=== PATIENT | male | born 1965 | race African-American/Black ===

== ENCOUNTER 2017-05-20 16:05 | Outpatient (CLI) | payer OTHER ==
[~2017-05-20 16:05] MED LIST: CLONAZEPAM1 M2 ORAL; COLACE100 MG ORAL; DILANTIN100 MG ORAL; FLEET ENEMA133 ML RECTAL; GEODON20 MG ORAL; MIRALAX17 G2 ORAL; NORCO 10/3251 EA ORAL; OXYCODONE HCL E20 MG PO; PROTONIX40 MG ORAL; THIAMINE HCL100 MG ORAL; WELLBUTRIN XL150 M3 ORAL
--- NOTE | 2017-05-20 17:48 | Diagnostic Imaging Report ---
Indication: Altered mental status Technique: sagittal T1 fast spin echo, axial T1 FLAIR, axial T2 FLAIR, axial T2 FS PROPELLER, axial T2* GRE, axial diffusion weighted images. ADC and exponential ADC maps generated Comparison: Reference made to brain CT 06/02/2016 Findings: No abnormal areas of restricted diffusion to suggest acute infarction. No acute hemorrhage or edema. No mass effect nor midline shift. There is age-related enlargement of ventricles and extra axial CSF spaces. There are bilateral focal deep white matter T2 hyperintensities. There is minimal ethmoid sinus disease bilaterally. Vascular flow voids are preserved.. Visualized orbits are unremarkable. Impression: Chronic and age-related changes. Bilateral deep white matter T2 hyperintensities, probably on the basis of chronic deep white matter ischemic changes Negative for acute intracranial bleed or mass effect.
== END 2017-05-20 18:05 | disposition home or self-care (01) ==
LOC: MRI 16:05
DX: R41.82 Altered mental status, unspecified (principal); R53.1 Weakness
CPT/HCPCS: 70551

== ENCOUNTER 2017-08-11 06:38 | Inpatient (IN) | payer OTHER ==
[~2017-08-11] VITALS: Ht 172.7 cm; Wt 72.6 kg
[2017-08-11] VITALS (10 sets, daily range): BP systolic 130–173; BP diastolic 75–106
--- NOTE | 2017-08-11 07:31 | Emergency Room Report ---
History of Present Illness General Chief Complaint: General Complaint Source: Patient, EMS Present Illness HPI 52-year-old male presents ED for evaluation. Per EMS patient was found on sidewalk sitting. Bystander called 911. Patient told EMS that he used sublingual marijuana and drink alcohol. Patient states he feels too weak to walk. Needs a place to sleep. Denies any head injury. Denies chest pain or shortness of breath. Denies nausea or vomiting. Denies any other drug use. No other relieving factors. Denies any other associated symptoms Allergies: Coded Allergies: HALOPERIDOL (Verified Allergy, Unknown, 04/05/14) COPIED FROM UNCODED SECTION HYDROXYZINE (Verified Allergy, Unknown, 04/05/14) COPIED FROM UNCODED SECTION Patient History Past Medical History: HTN, asthma, COPD, other - cirrhosis Past Surgical History: none Pertinent Family History: none Social History: Reports: alcohol use, drug use, Denies: smoking Immunizations: UTD Reviewed Nursing Documentation: PMH: Agreed, PSxH: Agreed Nursing Documentation-PMH Hx Cardiac Problems: Yes - CHF,ANGINA Hx Hypertension: Yes Hx Asthma: Yes Hx COPD: Yes Hx Cancer: No Hx Gastrointestinal Problems: Yes - CIRRHOSIS OF LIVER Hx Neurological Problems: No Review of Systems All Other Systems: negative except mentioned in HPI Physical Exam Vital Signs Date Time Temp Pulse Resp B/P (MAP) Pulse Ox O2 Delivery O2 Flow Rate FiO2 08/11/17 06:33 98.1 115 18 160/84 97 Room Air Sp02 EP Interpretation: reviewed, normal General Appearance: GCS 15, non-toxic, lethargic Head: normocephalic, atraumatic ENT: normal ENT inspection Neck: normal inspection Respiratory: chest non-tender, lungs clear, normal breath sounds, speaking full sentences Cardiovascular #1: regular rate, rhythm, no edema Gastrointestinal: normal inspection Rectal: deferred Genitourinary: no CVA tenderness Musculoskeletal: normal inspection Neurologic: other - lethargic Psychiatric: other - lethargic Skin: normal inspection Lymphatic: normal inspection Medical Decision Making Diagnostic Impression: Primary Impression: Self-inflicted injury Additional Impressions: Renal insufficiency Acute schizophrenia episode ETOH abuse ER Course 52-year-old male presents to ED for evaluation of weakness. Use marijuana and drank alcohol today Differential-psychosis, EtOH, substance abuse Patient initially just allowed to sleep. with stable vitals. Patient observed in ED Patient woke up stating that he may have hit his head earlier. CT head ordered CT head unremarkable She was brought back to his room. Shortly after patient was found on the floor. Large laceration to his left forearm. Patient would not specify what happened Patient was brought to monitored bed. IV access place. Blood drawn. CT head repeated Repeat CT head negative Labs show increased BUN/creatinine, alcoholic is negative, urine tox pending Patient then revealed that he had a recent bleed in his pocket and cut himself with a razor blade. Denies try to hurt himself Laceration to forearm was significant with multiple arterial bleeds. I ligated vessels and use cautery device to control the bleeding Laceration repaired. Pressure dressing applied. Ancef given I do not believe patient is safe to be discharged. Requires admission and possible psychiatric evaluation Labs Test 08/11/17 13:00 White Blood Count 11.9 K/UL (4.8-10.8) Red Blood Count 4.05 M/UL (4.70-6.10) Hemoglobin 13.0 G/DL (14.2-18.0) Hematocrit 42.5 % (42.0-52.0) Mean Corpuscular Volume 105 FL (80-99) Mean Corpuscular Hemoglobin 32.0 PG (27.0-31.0) Mean Corpuscular Hemoglobin Concent 30.5 G/DL (32.0-36.0) Red Cell Distribution Width 12.3 % (11.6-14.8) Platelet Count 207 K/UL (150-450) Mean Platelet Volume 7.9 FL (6.5-10.1) Neutrophils (%) (Auto) 73.1 % (45.0-75.0) Lymphocytes (%) (Auto) 16.0 % (20.0-45.0) Monocytes (%) (Auto) 7.7 % (1.0-10.0) Eosinophils (%) (Auto) 0.7 % (0.0-3.0) Basophils (%) (Auto) 2.6 % (0.0-2.0) Sodium Level 141 mEQ/L (135-145) Potassium Level 4.1 mEQ/L (3.4-4.9) Chloride Level 99 mEQ/L (98-107) Carbon Dioxide Level 24 mEQ/L (20-30) Anion Gap 18 (5-15) Blood Urea Nitrogen 25 mg/dL (7-23) Creatinine 1.5 mg/dL (0.7-1.2) Estimat Glomerular Filtration Rate 59.5 mL/min (>60) Glucose Level 80 mg/dL (74-106) Calcium Level 9.6 mg/dL (8.6-10.2) Total Bilirubin 0.6 mg/dL (0.0-1.2) Aspartate Amino Transf (AST/SGOT) 52 U/L (5-40) Alanine Aminotransferase (ALT/SGPT) 28 U/L (3-41) Alkaline Phosphatase 71 U/L (40-129) Total Protein 8.3 g/dL (6.6-8.7) Albumin 4.8 g/dL (3.5-5.2) Globulin 3.5 g/dL Albumin/Globulin Ratio 1.3 (1.0-2.7) Salicylates Level < 1 mg/dL (10-30) Acetaminophen Level < 10 ug/mL (10-30) Serum Alcohol < 10 mg/dL CT/MRI/US Diagnostic Results CT/MRI/US Diagnostic Results : Imaging Test Ordered: CT head Impression no acute process Last Vital Signs Date Time Temp Pulse Resp B/P (MAP) Pulse Ox O2 Delivery O2 Flow Rate FiO2 08/11/17 07:15 97.9 84 17 143/98 96 Room Air Status: improved Disposition: ADMITTED INPATIENT Condition: Serious Referrals: [facility],REFERRING (PCP) NATANAEL CHRISTIAN M.D. Aug 11, 2017 07:31
--- NOTE | 2017-08-11 12:35 | Diagnostic Imaging Report ---
Indication: Headache Technique: Contiguous 5 mm thick transaxial imaging of the head obtained in a Siemens Sensation [address] scanner. Soft tissue and bone windows generated. Total Dose length Product (DLP): [address] Dose Index Volume (CTDIvol): 70.38, 0.15 mGy Comparison: 06/02/16 Findings: There is mild prominence of the ventricles, basal cisterns, and cerebral sulci consistent with atrophy. Mild, nonspecific, white matter hypoattenuation is noted throughout the brain consistent with chronic small vessel disease. There is no midline shift, edema, acute hemorrhage, mass effect, or abnormal extra-axial fluid collections. Bones and extra osseous soft tissues are unremarkable. Mucosal thinning noted within the paranasal sinuses. Impression: No acute intracranial bleed, mass effect or edema. Mild atrophy of the brain. Nonspecific white matter hypoattenuation probably due to chronic small vessel disease. Sinusitis The CT scanner at [facility] is accredited by the [employer] and the scans are performed using dose optimization techniques as appropriate to a performed exam including Automatic Exposure control.
[2017-08-11] MEDS ORDERED: Sodium Chloride 500ML 500 ML IV ONE (12:56)
[2017-08-11] MEDS ORDERED: LORazepam Inj 2mg/ml 1ml IM ONE (13:00)
[2017-08-11] MEDS ORDERED: Tubing IV Cassette IV ONE (13:18)
[2017-08-11] MEDS ORDERED: LORazepam Inj 2mg/ml 1ml IV ONE (13:30)
[2017-08-11 13:44] LABS: BASOPHILS % (AUTO) 2.6 % (0.0-2.0); EOSINOPHILS % (AUTO) 0.7 % (0.0-3.0); MEAN CORPUSCULAR HGB CONC 30.5 G/DL (32.0-36.0); MEAN CORPUSCULAR VOLUME 105 FL (80-99); MEAN PLATELET VOLUME 7.9 FL (6.5-10.1); MONOCYTES % (AUTO) 7.7 % (1.0-10.0); NEUTROPHILS % (AUTO) 73.1 % (45.0-75.0); PLATELET COUNT 207 K/UL (150-450); RED BLOOD COUNT 4.05 M/UL (4.70-6.10); RED CELL DISTRIBUTION WIDTH 12.3 % (11.6-14.8); WHITE BLOOD COUNT 11.9 K/UL (4.8-10.8)
[2017-08-11 14:10] LABS: ACETAMINOPHEN < 10 ug/mL (10-30); ALANINE AMINOTRANSFERASE 28 U/L (3-41); ALBUMIN/GLOBULIN RATIO 1.3 (1.0-2.7); ALCOHOL < 10 mg/dL; ANION GAP 18 (5-15); ASPARTATE AMINO TRANSFERASE 52 U/L (5-40); CALCIUM 9.6 mg/dL (8.6-10.2); CARBON DIOXIDE 24 mEQ/L (20-30); CHLORIDE 99 mEQ/L (98-107); CREATININE 1.5 mg/dL (0.7-1.2); GLOMERULAR FILTRATION RATE 59.5 mL/min (>60); HEMOLYSIS 1; POTASSIUM 4.1 mEQ/L (3.4-4.9); SODIUM 141 mEQ/L (135-145); TOTAL PROTEIN 8.3 g/dL (6.6-8.7)
--- NOTE | 2017-08-11 14:23 | Diagnostic Imaging Report ---
Indication: Altered mental status Technique: Contiguous 5 mm thick transaxial imaging of the head obtained in a Siemens Sensation [address] scanner. Soft tissue and bone windows generated. Total Dose length Product (DLP): [address] Dose Index Volume (CTDIvol): 70.38, 0.15 mGy Comparison: none Findings: The size and configuration of the cortical sulci, basal cisterns, and ventricles are within normal limits for age. There is no mass effect, midline shift, or edema identified. There is no evidence of acute hemorrhage or abnormal intra-axial or extra-axial fluid collections. The bones and soft tissues are unremarkable. There is thecal thickening within the paranasal sinuses other in degree. Impression: No mass effect, edema or acute bleed. Sinusitis The CT scanner at [facility] is accredited by the [employer] and the scans are performed using dose optimization techniques as appropriate to a performed exam including Automatic Exposure control.
[2017-08-11] MEDS ORDERED: UNOBMED (14:51)
[2017-08-11] MEDS ORDERED: Surgicel 4in x 8in TOPIC ONE (15:24)
[2017-08-11] MEDS ORDERED: Bacitracin Oint UD TOPIC ONE ×3 (15:57→16:45)
[2017-08-11] MEDS ORDERED: ceFAZolin 1gm/50ml Premix 50 ML IV ONE (16:00)
[2017-08-11] MEDS ORDERED: ceFAZolin sod 1 GM in D5W 55 ML IVP SCH (16:30)
[2017-08-11] MEDS ORDERED: BUPROPION XL300 MG ORAL (17:10)
[2017-08-11] MEDS ORDERED: SEROQUEL200 MG ORAL (17:10)
[2017-08-11] MEDS ORDERED: KLONOPIN1 MG ORAL (17:10)
[2017-08-11] MEDS ORDERED: GEODON40 MG ORAL (17:10)
[2017-08-11] MEDS ORDERED: GABAPENTIN300 MG ORAL (17:10)
[2017-08-11] MEDS ORDERED: Mylanta II UD 30ml ORAL PRN (19:30)
[2017-08-11] MEDS ORDERED: Miralax 17gm pkt ORAL PRN (19:30)
[2017-08-11] MEDS ORDERED: Zolpidem 5mg tab ORAL PRN (19:30)
[2017-08-11] MEDS ORDERED: Phenytoin 100mg cap ORAL SCH (21:00)
[2017-08-11] MEDS: Morphine Sulfate 2mg/ml Inj IVP PRN (21:37)
[2017-08-12] MEDS: LORazepam Inj 2mg/ml 1ml IV PRN ×2 (00:40→06:18)
[2017-08-12] MEDS ORDERED: TAMSULOSIN HCL0.4 MG ORAL (02:22)
[2017-08-12] MEDS ORDERED: LOSARTAN POTASS50 MG ORAL (02:22)
[2017-08-12] MEDS: Morphine Sulfate 2mg/ml Inj IVP PRN ×3 (02:49→12:53)
[2017-08-12 04:00] VITALS: BP 139/101
[2017-08-12 07:00] LABS: BASOPHILS % (AUTO) 1.8 % (0.0-2.0); EOSINOPHILS % (AUTO) 2.8 % (0.0-3.0); LYMPHOCYTES % (AUTO) 18.6 % (20.0-45.0); MEAN CORPUSCULAR HGB CONC 32.7 G/DL (32.0-36.0); MEAN CORPUSCULAR VOLUME 104 FL (80-99); MEAN PLATELET VOLUME 8.2 FL (6.5-10.1); MONOCYTES % (AUTO) 11.5 % (1.0-10.0); NEUTROPHILS % (AUTO) 65.3 % (45.0-75.0); PLATELET COUNT 174 K/UL (150-450); RED BLOOD COUNT 3.64 M/UL (4.70-6.10); RED CELL DISTRIBUTION WIDTH 11.8 % (11.6-14.8)
[2017-08-12 07:29] LABS: ALANINE AMINOTRANSFERASE 30 U/L (3-41); ALBUMIN/GLOBULIN RATIO 1.3 (1.0-2.7); ANION GAP 13 (5-15); ASPARTATE AMINO TRANSFERASE 60 U/L (5-40); CALCIUM 9.4 mg/dL (8.6-10.2); CARBON DIOXIDE 25 mEQ/L (20-30); CHLORIDE 100 mEQ/L (98-107); CHOLESTEROL 179 mg/dL (< 200); CHOLESTEROL/HDL RATIO 1.7 (3.3-4.4); CREATININE 1.2 mg/dL (0.7-1.2); GLOMERULAR FILTRATION RATE > 60 mL/min (>60); HEMOLYSIS 2; LDL CHOLESTEROL CALC 55 mg/dL (60-99); POTASSIUM 3.6 mEQ/L (3.4-4.9); SODIUM 138 mEQ/L (135-145); TOTAL PROTEIN 7.7 g/dL (6.6-8.7)
[2017-08-12 08:03] VITALS: BP 144/101
[2017-08-12] MEDS: QUEtiapine 200mg tab ORAL SCH ×2 (08:34→09:00)
[2017-08-12] MEDS ORDERED: BuPROPion XL 150mg tab ORAL SCH (09:00)
[2017-08-12 12:00] VITALS: BP 142/85
--- NOTE | 2017-08-12 14:21 | History and Physical ---
History of Present Illness General Date patient seen: Aug 11, 2017 Reason for Hospitalization: General Complaint Present Illness HPI 52-year-old male presents ED for evaluation of acute encephalopathy. Bystander called 911. Patient told EMS that he used sublingual marijuana and drink alcohol. Patient states he feels too weak to walk. Needs a place to sleep. He was found to be in renal failure and dehydrated and admitted for futher work up. Allergies: Coded Allergies: HALOPERIDOL (Verified Allergy, Unknown, 04/05/14) COPIED FROM UNCODED SECTION HYDROXYZINE (Verified Allergy, Unknown, 04/05/14) COPIED FROM UNCODED SECTION Medication History Scheduled Bupropion HCl (Bupropion Xl), 150 MG ORAL DAILY Bupropion Hcl* (Wellbutrin*), 100 MG ORAL TID, (Reported) Clonazepam (Clonazepam), 2 MG ORAL BEDTIME Clonazepam* (Klonopin*), 2 MG ORAL BID, (Reported) Docusate Sodium* (Colace*), 100 MG ORAL BID Gabapentin* (Gabapentin*), 300 MG ORAL THREE TIMES A DAY, (Reported) Losartan Potassium* (Losartan Potassium*), 50 MG ORAL DAILY, (Reported) Pantoprazole* (Protonix*), 40 MG ORAL DAILY Phenytoin Sodium Extended* (Dilantin*), 300 MG ORAL BEDTIME Polyethylene Glycol 3350* (Miralax*), 17 GM ORAL DAILY Quetiapine Fumarate* (Seroquel*), 200 MG ORAL HS, (Reported) Tamsulosin Hcl (Tamsulosin Hcl*), 0.4 MG ORAL BEDTIME, (Reported) Thiamine Hcl (Vitamin B1*), 100 MG ORAL DAILY Ziprasidone Hcl* (Geodon*), 40 MG ORAL TWICE A DAY Ziprasidone Hcl* (Geodon*), 80 MG ORAL TWICE A DAY, (Reported) Scheduled PRN Hydrocodone/Acetaminophen (Hydrocodon-Acetaminophn 10-325), 1 TAB ORAL Q6H PRN for For Pain, (Reported) Miscellaneous Medications Oxycodone HCl (Oxycodone HCl ER), 15 MG PO, (Reported) Unable to Obtain Medications (Unable To Obtain Meds), (Reported) Patient History Healthcare decision maker Resuscitation status Full Code Advanced Directive on File Review of Systems Constitutional: Reports: no symptoms Eye: Reports: no symptoms Physical Exam General Appearance: WD/WN, no apparent distress Lines, tubes and drains: peripheral HEENT: normocephalic, atraumatic Neck: non-tender, normal alignment Respiratory/Chest: chest wall non-tender Breasts: no masses Cardiovascular/Chest: normal peripheral pulses, normal rate, no JVD Abdomen: normal bowel sounds, non tender Genitourinary/Rectal: normal genital exam Last 24 Hour Vital Signs Date Time Temp Pulse Resp B/P (MAP) Pulse Ox O2 Delivery O2 Flow Rate FiO2 08/12/17 12:00 98.2 74 20 142/85 97 Room Air 08/12/17 09:14 97.7 08/12/17 08:03 97.7 115 22 144/101 Room Air 08/12/17 04:00 97.8 114 18 139/101 98 Room Air 08/11/17 23:59 98.5 115 18 146/100 98 Room Air 08/11/17 20:00 98.5 96 18 147/87 98 Room Air 08/11/17 19:49 84 130/75 Room Air 08/11/17 19:47 98.1 84 18 130/75 99 Room Air 08/11/17 18:00 92 18 147/96 99 Room Air 08/11/17 16:00 84 14 150/90 97 Room Air Laboratory Tests Test 08/11/17 17:30 08/12/17 04:35 Urine Opiates Screen Negative (NEGATIVE) Urine Barbiturates Screen Negative (NEGATIVE) Phencyclidine (PCP) Screen Negative (NEGATIVE) Urine Amphetamines Screen Positive (NEGATIVE) H Urine Benzodiazepines Screen Positive (NEGATIVE) H Urine Cocaine Screen Positive (NEGATIVE) H Urine Marijuana (THC) Screen Positive (NEGATIVE) H White Blood Count 8.0 K/UL (4.8-10.8) Red Blood Count 3.64 M/UL (4.70-6.10) L Hemoglobin 12.4 G/DL (14.2-18.0) L Hematocrit 37.8 % (42.0-52.0) L Mean Corpuscular Volume 104 FL (80-99) H Mean Corpuscular Hemoglobin 34.0 PG (27.0-31.0) H Mean Corpuscular Hemoglobin Concent 32.7 G/DL (32.0-36.0) Red Cell Distribution Width 11.8 % (11.6-14.8) Platelet Count 174 K/UL (150-450) Mean Platelet Volume 8.2 FL (6.5-10.1) Neutrophils (%) (Auto) 65.3 % (45.0-75.0) Lymphocytes (%) (Auto) 18.6 % (20.0-45.0) L Monocytes (%) (Auto) 11.5 % (1.0-10.0) H Eosinophils (%) (Auto) 2.8 % (0.0-3.0) Basophils (%) (Auto) 1.8 % (0.0-2.0) Sodium Level 138 mEQ/L (135-145) Potassium Level 3.6 mEQ/L (3.4-4.9) Chloride Level 100 mEQ/L (98-107) Carbon Dioxide Level 25 mEQ/L (20-30) Anion Gap 13 (5-15) Blood Urea Nitrogen 16 mg/dL (7-23) Creatinine 1.2 mg/dL (0.7-1.2) Estimat Glomerular Filtration Rate > 60 mL/min (>60) Glucose Level 139 mg/dL (74-106) H Calcium Level 9.4 mg/dL (8.6-10.2) Total Bilirubin 0.7 mg/dL (0.0-1.2) Aspartate Amino Transf (AST/SGOT) 60 U/L (5-40) H Alanine Aminotransferase (ALT/SGPT) 30 U/L (3-41) Alkaline Phosphatase 71 U/L (40-129) Total Protein 7.7 g/dL (6.6-8.7) Albumin 4.4 g/dL (3.5-5.2) Globulin 3.3 g/dL Albumin/Globulin Ratio 1.3 (1.0-2.7) Triglycerides Level 103 mg/dL (< 150) Cholesterol Level 179 mg/dL (< 200) LDL Cholesterol 55 mg/dL (60-99) L HDL Cholesterol 103 mg/dL (> 60) H Cholesterol/HDL Ratio 1.7 (3.3-4.4) L Thyroid Stimulating Hormone (TSH) 7.240 uIU/mL (0.300-4.500) Height (Feet): 5 Height (Inches): 8.00 Weight (Pounds): 160 Medications Current Medications Medications (Trade) Dose Ordered Sig/Sam Route PRN Reason Start Time Stop Time Status Last Admin Dose Admin Acetaminophen (Tylenol) 650 mg Q4H PRN ORAL fever 08/11/17 19:30 09/10/17 19:29 Al Hydroxide/Mg Hydroxide (Mylanta II) 30 ml Q6H PRN ORAL dyspepsia 08/11/17 19:30 09/10/17 19:29 Bupropion HCl (Wellbutrin XL) 150 mg DAILY ORAL 08/12/17 09:00 09/11/17 08:59 08/12/17 08:34 Clonazepam (KlonoPIN) 2 mg BEDTIME ORAL 08/11/17 21:00 08/18/17 20:59 08/11/17 21:31 Dextrose (Dextrose 50%) STAT PRN IV Hypoglycemia 08/11/17 19:30 09/10/17 19:29 Gabapentin (Neurontin) 300 mg THREE TIMES A DAY ORAL 08/12/17 21:00 09/11/17 20:59 Lorazepam (Ativan 2mg/ml 1ml) 0.5 mg Q4H PRN IV For Anxiety 08/11/17 19:30 08/18/17 19:29 08/12/17 06:18 Morphine Sulfate (Morphine Sulfate) 1 mg Q4H PRN IVP For Pain 4-10 08/11/17 19:30 08/18/17 19:29 08/12/17 12:53 Ondansetron HCl (Zofran) 4 mg Q6H PRN IVP Nausea & Vomiting 08/11/17 19:30 09/10/17 19:29 Oxycodone HCl (OxyCONTIN) 10 mg Q12HR ORAL 08/12/17 14:30 08/19/17 14:29 Phenytoin (Dilantin) 300 mg BEDTIME ORAL 08/11/17 21:00 09/10/17 20:59 08/11/17 21:31 Polyethylene Glycol (Miralax) 17 gm HSPRN PRN ORAL Constipation 08/11/17 19:30 09/10/17 19:29 Quetiapine Fumarate (SEROquel) 200 mg DAILY ORAL 08/12/17 09:00 09/11/17 08:59 Zolpidem Tartrate (Ambien) 5 mg HSPRN PRN ORAL Insomnia 08/11/17 19:30 08/18/17 19:29 Assessment/Plan Problem List: (1) Suicidal ideation (2) Acute schizophrenia episode ICD Codes: F20.9 - Acute schizophrenia episode SNOMED: 603739669 (3) ETOH abuse ICD Codes: F10.10 - Alcohol abuse, uncomplicated SNOMED: 47495558, 47898852 (4) Seizure disorder ICD Codes: G40.909 - Epilepsy, unspecified, not intractable, without status epilepticus SNOMED: 942853834 (5) HTN (hypertension) ICD Codes: I10 - HTN (hypertension) SNOMED: 43923379 (6) Opioid abuse ICD Codes: F11.10 - Opioid abuse, uncomplicated SNOMED: 7253784 Assessment/Plan iv hydration psych evaluation social service evaluation NETO STRICKLAND Aug 12, 2017 14:21
[2017-08-12] MEDS ORDERED: oxyCONTIN 10mg tab ORAL SCH (14:30)
--- NOTE | 2017-08-12 22:44 | Consultation ---
History of Present Illness General Chief Complaint: General Complaint Present Illness HPI 52-year-old male presents ED for evaluation of acute encephalopathy. the pt is manipulative and inconsistent. well familiar with the pt. the pt hopping from one psych hosptial to another. spends money on coke and prostitutes Allergies: Coded Allergies: HALOPERIDOL (Verified Allergy, Unknown, 04/05/14) COPIED FROM UNCODED SECTION HYDROXYZINE (Verified Allergy, Unknown, 04/05/14) COPIED FROM UNCODED SECTION Medication History Scheduled Bupropion HCl (Bupropion Xl), 150 MG ORAL DAILY Bupropion Hcl* (Wellbutrin*), 100 MG ORAL TID, (Reported) Clonazepam (Clonazepam), 2 MG ORAL BEDTIME Clonazepam* (Klonopin*), 2 MG ORAL BID, (Reported) Docusate Sodium* (Colace*), 100 MG ORAL BID Gabapentin* (Gabapentin*), 300 MG ORAL THREE TIMES A DAY, (Reported) Losartan Potassium* (Losartan Potassium*), 50 MG ORAL DAILY, (Reported) Pantoprazole* (Protonix*), 40 MG ORAL DAILY Phenytoin Sodium Extended* (Dilantin*), 300 MG ORAL BEDTIME Polyethylene Glycol 3350* (Miralax*), 17 GM ORAL DAILY Quetiapine Fumarate* (Seroquel*), 200 MG ORAL HS, (Reported) Tamsulosin Hcl (Tamsulosin Hcl*), 0.4 MG ORAL BEDTIME, (Reported) Thiamine Hcl (Vitamin B1*), 100 MG ORAL DAILY Ziprasidone Hcl* (Geodon*), 40 MG ORAL TWICE A DAY Ziprasidone Hcl* (Geodon*), 80 MG ORAL TWICE A DAY, (Reported) Scheduled PRN Hydrocodone/Acetaminophen (Hydrocodon-Acetaminophn 10-325), 1 TAB ORAL Q6H PRN for For Pain, (Reported) Miscellaneous Medications Oxycodone HCl (Oxycodone HCl ER), 15 MG PO, (Reported) Unable to Obtain Medications (Unable To Obtain Meds), (Reported) Patient History History Provided By: Patient, Medical Record, PMD Healthcare decision maker Resuscitation status Full Code Advanced Directive on File Past Medical/Surgical History Past Medical/Surgical History: (1) Abdominal pain (2) Chest pain syndrome (3) Abdominal pain (4) Cocaine abuse (5) Drug abuse (6) Opioid abuse (7) Renal insufficiency (8) Opioid abuse (9) Shoulder separation (10) ETOH abuse (11) Acute schizophrenia episode (12) Seizure disorder (13) Opioid abuse (14) HTN (hypertension) (15) Suicidal ideation Review of Systems Psychiatric: Reports: prior hx Physical Exam General Appearance: no apparent distress, alert, thin Neurologic: alert, oriented x 3, responsive, normal mood/affect Last 24 Hour Vital Signs Date Time Temp Pulse Resp B/P (MAP) Pulse Ox O2 Delivery O2 Flow Rate FiO2 08/12/17 12:00 98.2 74 20 142/85 97 Room Air 08/12/17 09:14 97.7 08/12/17 08:03 97.7 115 22 144/101 Room Air 08/12/17 04:00 97.8 114 18 139/101 98 Room Air 08/11/17 23:59 98.5 115 18 146/100 98 Room Air Laboratory Tests Test 08/12/17 04:35 White Blood Count 8.0 K/UL (4.8-10.8) Red Blood Count 3.64 M/UL (4.70-6.10) L Hemoglobin 12.4 G/DL (14.2-18.0) L Hematocrit 37.8 % (42.0-52.0) L Mean Corpuscular Volume 104 FL (80-99) H Mean Corpuscular Hemoglobin 34.0 PG (27.0-31.0) H Mean Corpuscular Hemoglobin Concent 32.7 G/DL (32.0-36.0) Red Cell Distribution Width 11.8 % (11.6-14.8) Platelet Count 174 K/UL (150-450) Mean Platelet Volume 8.2 FL (6.5-10.1) Neutrophils (%) (Auto) 65.3 % (45.0-75.0) Lymphocytes (%) (Auto) 18.6 % (20.0-45.0) L Monocytes (%) (Auto) 11.5 % (1.0-10.0) H Eosinophils (%) (Auto) 2.8 % (0.0-3.0) Basophils (%) (Auto) 1.8 % (0.0-2.0) Sodium Level 138 mEQ/L (135-145) Potassium Level 3.6 mEQ/L (3.4-4.9) Chloride Level 100 mEQ/L (98-107) Carbon Dioxide Level 25 mEQ/L (20-30) Anion Gap 13 (5-15) Blood Urea Nitrogen 16 mg/dL (7-23) Creatinine 1.2 mg/dL (0.7-1.2) Estimat Glomerular Filtration Rate > 60 mL/min (>60) Glucose Level 139 mg/dL (74-106) H Calcium Level 9.4 mg/dL (8.6-10.2) Total Bilirubin 0.7 mg/dL (0.0-1.2) Aspartate Amino Transf (AST/SGOT) 60 U/L (5-40) H Alanine Aminotransferase (ALT/SGPT) 30 U/L (3-41) Alkaline Phosphatase 71 U/L (40-129) Total Protein 7.7 g/dL (6.6-8.7) Albumin 4.4 g/dL (3.5-5.2) Globulin 3.3 g/dL Albumin/Globulin Ratio 1.3 (1.0-2.7) Triglycerides Level 103 mg/dL (< 150) Cholesterol Level 179 mg/dL (< 200) LDL Cholesterol 55 mg/dL (60-99) L HDL Cholesterol 103 mg/dL (> 60) H Cholesterol/HDL Ratio 1.7 (3.3-4.4) L Thyroid Stimulating Hormone (TSH) 7.240 uIU/mL (0.300-4.500) Height (Feet): 5 Height (Inches): 8.00 Weight (Pounds): 160 Assessment/Plan Status: stable Assessment/Plan mt Tanja Uriarte M.D. Aug 12, 2017 22:44
--- NOTE | 2017-08-13 13:58 | Discharge Summary ---
Discharge Summary Hospital Course Date of Admission Aug 11, 2017 at 16:49 Date of Discharge Aug 12, 2017 at 15:50 Admitting Diagnosis DEHYDRATION ,ALTERD MENTAL STATUS HPI Ricky Lomas is a 52 year old male who was admitted on Aug 11, 2017 at 16:49 for Dehydration, Altered Mental Status Hospital Course [id number] Discharge Discharge Disposition Patient was discharged home. Discharge Diagnoses: Norma Aj NP Aug 13, 2017 13:58
--- NOTE | 2017-08-14 00:45 | Discharge Summary 2 SIG ---
DATE OF ADMISSION: 08/11/2017 DATE OF DISCHARGE: 08/12/2017 SAS DEVELOPER: Tanja Cedillo M.D. Brief Hospital Course: The patient is a 52-year-old male, who presented to ED for evaluation of acute encephalopathy, bystander called 911. The patient told EMS that he used sublingual marijuana and drank alcohol. He was too weak to walk. On evaluation at ED, the patient said he hit his head. CT of the head done was unremarkable. He was brought back to the room and shortly after was found on the floor with a large laceration to his left forearm. Repeat CT of the head was again negative with no mass effect, edema, or acute bleed. Laceration was repaired and a pressure dressing applied. He was then admitted for psychiatric evaluation. The patient is manipulative and inconsistent. He was assessed to be stable for discharge home per psychiatric evaluation. The patient did not require inpatient psychiatric treatment. Social service consult was done. He was then discharged home. FINAL DIAGNOSES: 1. Acute schizophrenic episode. 2. Suicidal ideation. 3. Ethanol abuse. 4. Seizure disorder. 5. Hypertension. 6. Opiate abuse. 7. Multiple drug abuse. DISPOSITION: The patient was discharged home. DISCHARGE MEDICATIONS: Refer to med list. FOLLOWUP: The patient was advised to follow up with PMD in a week. Adan Felipe M.D. I have been assigned to dictate discharge summary on this account and I was not involved in the patient's management. Norma Aj N.P. DR: Wilian JOB#: [id number] CC: VONNIE
--- NOTE | 2017-08-14 11:07 | Diagnostic Imaging Report ---
APPROVED REPORT CPT Code: 87181 Present Symptoms Shortness of breath BILATERAL: Imaging reveals a patent deep venous system bilaterally. There is no evidence of thrombus within the femoral, popliteal or tibial segments. The greater saphenous veins are also within normal limits. Doppler indicates normal spontaneous flow within these segments.
== END 2017-08-12 15:50 | disposition home or self-care (01) | DRG 740 ==
LOC: EDBD 06:38 → EMR 07:11 → 3E 16:49 → EDBEDREQ 17:04 → 3E 08-12 08:36
PROC: 0X3F0ZZ Control Bleeding in Left Lower Arm, Open Approach (ICD-10-PCS; principal; 2017-08-11)
PROC: 0HQEXZZ Repair Left Lower Arm Skin, External Approach (ICD-10-PCS; 2017-08-11)
DX: F23 Brief psychotic disorder (principal); R45.851 Suicidal ideations; G40.909 Epilepsy, unspecified, not intractable, without status epilepticus; S51.812A Laceration without foreign body of left forearm, initial encounter; X78.8XXA Intentional self-harm by other sharp object, initial encounter; Y92.238 Other place in hospital as the place of occurrence of the external cause; I10 Essential (primary) hypertension; F11.10 Opioid abuse, uncomplicated; F10.10 Alcohol abuse, uncomplicated; F19.10 Other psychoactive substance abuse, uncomplicated; Z88.8 Allergy status to other drugs, medicaments and biological substances; X83.8XXA Intentional self-harm by other specified means, initial encounter; Y92.230 Patient room in hospital as the place of occurrence of the external cause
CPT/HCPCS: 36415; 70450; 80053; 80061; 80300; 80329; 82962; 84443; 85025; 87040; 87081; 93970; 99285